=== PATIENT | male | born 1950 | race African-American/Black ===

== ENCOUNTER 2024-11-18 13:24 | Outpatient (REF) | payer MEDICARE, SELFPAY ==
--- OUTSIDE RECORDS SUMMARY | 2024-11-18 15:50 | XMS_ITS | Clinical Summary ---
Author Organization [facility] Address [address] [place] [address] Phone Care Team Providers Care Real Estate Portfolio Manager Name Role Phone Adam Lawson MD Primary Care Provider [phone] Allergies No known active allergies Medications fluticasone propionate (FLONASE) 50 mcg/actuation nasal spray 04/13/20 21 Active diclofenac (VOLTAREN) 50 mg EC tablet Take 1 tablet (50 mg total) by mouth 2 (two) times a day. Active lacosamide (VIMPAT) 200 mg tablet tablet Take 2 Tablets by mouth daily. 1 tablet in the morning 1 tablets at night Active lacosamide (VIMPAT) 150 mg tablet tablet Take 200 mg by mouth 2 (two) times a day. Active folic acid/multivit- min/lutein (CENTRUM SILVER ORAL) 10/06/19 21 Active pravastatin (PRAVACHOL) 40 mg tablet Take 1 tablet (40 mg total) by mouth 1 (one) time each day. 90 tablet 1 05/17/20 24 Active metoprolol tartrate (LOPRESSOR) 25 mg tablet Take 1 tablet (25 mg total) by mouth 1 (one) time each day. 90 tablet 1 05/17/20 24 Active chlorthalidone (HYGROTON) 25 mg tablet Take 1 tablet (25 mg total) by mouth 1 (one) time each day. 90 tablet 1 05/17/20 24 Active pantoprazole (PROTONIX) 40 mg EC tablet Take 1 tablet by mouth once daily 90 tablet 11/11/19 25 Active folic acid (FOLVITE) 1 mg tablet Take 1 tablet by mouth once daily 90 tablet 11/16/19 25 Active albuterol HFA (PROAIR HFA ; PROVENTIL HFA ; VENTOLIN HFA) 90 mcg/actuation inhaler Inhale 1 Puff into the lungs every 6 hours as needed for Cough or Wheezing. 6.7 g 1 11/17/19 25 Active albuterol HFA (PROAIR HFA ; PROVENTIL HFA ; VENTOLIN HFA) 90 mcg/actuation inhaler Inhale 1 Puff into the lungs every 6 hours as needed for Cough or Wheezing. 10/24/19 24 025 Discontinued(Re order) pantoprazole (PROTONIX) 40 mg EC tablet Take 1 tablet (40 mg total) by mouth 1 (one) time each day. 90 tablet 1 05/17/20 24 025 Discontinued folic acid (FOLVITE) 1 mg tablet Take 1 tablet by mouth once daily 90 tablet 08/22/19 25 025 Discontinued Active Problems Problem Noted Date Diagnosed Date Seasonal allergies 02/13/2022 Adenoma of left adrenal gland 01/02/2022 Seizure (CMS/[facility] V24, CMS/HCC V28) 01/02/2022 Gross hematuria 02/10/2020 Asthma 03/19/2018 Hypertension 03/19/2018 Erosive esophagitis 03/06/2018 Hyperlipidemia 01/07/2018 Mitral regurgitation 12/01/2017 ED (erectile dysfunction) 12/12/2016 Internal hemorrhoids 12/12/2016 Proteinuria 12/12/2016 Encounters Date Type Department Care Team Description 10/18/2024 Telephone [facility] [address] [place] [phone] Wesley Capellan PA referral 10/13/2024 1:00 PM EDT Office [address] [facility] [address] [place] [phone] Wesley Capellan PA Hearing loss of left ear, unspecified hearing loss type (Primary Dx) 10/12/2024 [address]phone Internal Medicine [address] [place] [phone] Adam Lawson MD Earache from Last 3 Months Immunizations Name Administration Dates Next Due COVID-19 (Moderna/Spikevax) 12yo and older 04/03 Influenza trivalent, 0.5mL ( Fluzone High-dose) 65yo and older 04/03/2021 Pfizer SARS-CoV-2 COVID-19, mRNA, LNP-S, preservative free 06/16/2024 Td Tetanus diptheria (Tdvax) 7yo and older 02/19 Surgical History Surgery Date Site/Laterality Comments BACK SURGERY PROCEDURE:BACK SURGERY LUNG SURGERY PROCEDURE:LUNG SURGERY AMPUTATION PROCEDURE:AMPUTATION;COMMENT:2 FINGERS Medical History Medical History Date Comments Hypertension DX:Hypertension HLD (hyperlipidemia) DX:HLD (hyp erlipidemia) Seizures (CMS/HCC V24, CMS/HCC V28) DX:Seizures (HCC) Lung cancer (CMS/HCC V24, CMS/HCC V28) DX:Lung cancer (HCC) History of hepatitis C virus infection DX:History of hepatitis C virus infection Family History Medical History Relation Name Comments Cancer Brother PROSTATE Cancer Father BONE Cancer Mother BONE Cancer Sister BONE Relation Name Status Comments Brother Father Mother Sister Social History Tobacco Use Types Packs/Day Years Used Date Smoking Tobacco: Former Smokeless Tobacco: Never Tobacco Cessation:Counseling Given: Not Answered Alcohol Use Standard Drinks/Week Comments Not Currently 0 (1 standard drink = 0.6 oz pur e alcohol) Sex and Gender Information Value Date Recorded Sex Assigned at Not on file Legal Sex Male 12:13 AM EST Gender Identity Not on file Sexual Orientation Not on file Obstetrics History Last Filed Vital Signs Vital Sign Reading Time Taken Comments Blood Pressure 118/75 10/13/2024 1:04 PM EDT Pulse 62 10/13/2024 1:04 PM EDT Temperature 36.6 ??C (97.8 ??F) 10/13/2024 1:04 PM ED T Respiratory Rate - - Oxygen Saturation 98% 10/13/2024 1:04 PM EDT Inhaled Oxygen Concentration - - Weight 73 kg (161 lb) 05/27/2024 10:15 AM EST Height 172.7 cm (5' 8 ) 05/17/2024 8:54 AM EST Body Mass Index 24.48 05/17/2024 8:54 AM EST Plan of Treatment Health Maintenance Due Date Last Done Comments RSV Immunization Adult Patients (1 - Risk 60-74 years 1-dose series) 2011 Abdominal Aortic Aneurysm (AAA) Screen 05/25/2022 Social Influencers of Health Screening 05/25/2022 COVID-19 Vaccine ( season) 2024 06/16/2024, 04/03/2023, 04/12/2022, Additional history exists Depression Screening 11/13/2024 11/14/2023 Falls Risk Assessment 11/13/2024 11/14/2023 Medicare Annual Wellness Visit 11/13/2024 11/14/2023 Hypertension/CHF/CAD Annual BMP Blood Test 05/17/2025 05/17/2024, 10/27/2023, 10/27/2023 Colorectal Cancer Screening: Colonoscopy 08/12/2028 08/12/2023 Cholesterol Screening (Lipid Panel) 05/17/2029 05/17/2024, 10/27/2023, 10/27/2023 DTaP,Tdap,and Td Vaccines (2 - Td or Tdap) 02/19/2033 02/19/2023 Pneumococcal Vaccine: 50+ Years Completed 01/12/2023 Zoster Vaccines Completed 03/30/2023, 01/12/2023 Hepatitis C Screening Completed 10/24/2023 Influenza Vaccine Completed 04/02/2024, , 04/12/2022, Additional history exists HIB Vaccines Aged Out No longer eligi ble based on patient's age to complete this topic HPV Vaccines Aged Out No longer eligi ble based on patient's age to complete this topic Hepatitis A Vaccines Aged Out No long er eligible based on patient's age to complete this topic Hepatitis B Vaccines Aged Out No long er eligible based on patient's age to complete this topic IPV Vaccines Aged Out No longer eligi ble based on patient's age to complete this topic MMR Vaccines Aged Out No longer eligi ble based on patient's age to complete this topic Meningococcal ACWY Vaccine Aged Out N o longer eligible based on patient's age to complete this topic Meningococcal B Vaccine Aged Out No l onger eligible based on patient's age to complete this topic RSV Immunization Patients Under 20 months Aged Out No longer eligible based on patient's age to complete this topic Varicella Vaccines Aged Out No longer eligible based on patient's age to complete this topic Procedures Procedure Name Priority Date/Time Associated Diagnosis Comments BASIC METABOLIC PANEL Routine 05/17/2024 10:40 AM EST Primary hypertension LIPID PANEL WITH REFLEX TO DIRECT LDL Routine 05/17/2024 10:40 AM EST Primary hypertension DEPRESSION SCREENING Routine 11/14/2023 FALLS RISK ASSESSMENT Routine 11/14/2023 HEPATITIS C SCREENING Routine 10/24/2023 COLONOSCOPY Routine 08/12/2023 from Last 3 Months or Most Recently Relevant to Health Maintenance Results * Lipid panel with reflex to direct LDL (05/17/2024 10:40 AM EST) Cholesterol 197 0 - 200 mg/dL LAB CHEMISTRY METHOD 05/17/2024 3:24 PM [facility] Triglycerides 119 0 - 150 mg/dL LAB CHEMISTRY METHOD 05/17/2024 3:24 PM [facility] HDL 95 >=40 mg/dL LAB CHEMISTRY METHOD 05/17/2024 3:24 PM [facility] LDL Calculated 78 0 - 100 mg/dL LAB CHEMISTRY METHOD 05/17/2024 3:24 PM [facility] VLDL Cholesterol Gurjit 23.8 mg/dL LAB CHEMISTRY METHOD 05/17/2024 3:24 PM [facility] Non HDL Chol. (LDL+VLDL) 102 <145 mg/dL LAB CHEMISTRY METHOD 05/17/2024 3:24 PM [facility] Chol/HDL Ratio 2.1 0.0 - 4.4 LAB CHEMISTRY METHOD 05/17/2024 3:24 PM [facility] Blood Venous blood specimen / Unknown Venipuncture / Unknown 05/17/2024 10:40 AM EST 05/17/2024 10:40 AM EST us Adam Lawson MD LAB BLOOD ORDERABLES Final Res ult [facility] [address] [place] [address], [place] [phone] * (ABNORMAL) Basic metabolic panel (05/17/2024 10:40 AM EST) Sodium 141 133 - 145 mmol/L LAB CHEMISTRY METHOD 05/17/2024 3:15 PM [facility] Potassium 4.2 3.5 - 5.5 mmol/L LAB CHEMISTRY METHOD 05/17/2024 3:15 PM [facility] Chloride 106 96 - 110 mmol/L LAB CHEMISTRY METHOD 05/17/2024 3:15 PM [facility] CO2 29 21 - 32 mmol/L LAB CHEMISTRY METHOD 05/17/2024 3:15 PM [facility] Anion Gap 6 3 - 11 LAB CHEMISTRY METHOD 05/17/2024 3:15 PM [facility] Glucose 117(H) 70 - 100 mg/dL LAB CHEMISTRY METHOD 05/17/2024 3:15 PM [facility] BUN 14 5 - 25 mg/dL LAB CHEMISTRY METHOD 05/17/2024 3:15 PM [facility] Creatinine 0.97 0.70 - 1.30 mg/dL LAB CHEMISTRY METHOD 05/17/2024 3:15 PM [facility] eGFR 83 >=60 mL/min/1. 73m2 LAB CHEMISTRY METHOD 05/17/2024 3:15 PM [facility] Comment:Calculation based on the??Chronic Kidney Disease Epidemiology Collaboration (CKD-EPI) equation refit??without adjustment for race. BUN/Creatinine Ratio 14.4 LAB CHEMISTRY METHOD 05/17/2024 3:15 PM [facility] Calcium 10.4 8.5 - 10.5 mg/dL LAB CHEMISTRY METHOD 05/17/2024 3:15 PM EST [facility] Blood Venous blood specimen / Unknown Venipuncture / Unknown 05/17/2024 10:40 AM EST 05/17/2024 10:40 AM EST Adam Lawson MD LAB BLOOD ORDERABLES Final Res ult [facility] [address] [place] [address], * Falls Risk Assessment (11/14/2023) [facility] Falls Risk Assessment abstracted [facility] Provider HEALTH MAINTENANCE Final Result * Depression Screening (11/14/2023) Pathologist [facility] Depression Screening abstracted [facility] Provider HEALTH MAINTENANCE Final Result * Hepatitis C Screening (10/24/2023) Pathologist [facility] Hepatitis C Screening abstracted [facility] Provider HEALTH MAINTENANCE Final Result * Colonoscopy (08/12/2023) Pathologist [facility] Colonoscopy no interpretation , abstracted Anatomical Region Laterality Modality Other Historical Provider HEALTH MAINTENANCE Final Result from Last 3 Months or Most Recently Relevant to Health Maintenance Insurance [employer] MED[employer]ARE [employer]AGE Care Teams Real Estate Portfolio Manager Relationship Specialty Start Date End Date Adam Lawson MD [address] [place] [phone] PCP - General Internal Medicine 07/15/19
== END 2024-11-18 13:25 | disposition home or self-care (01) ==
LOC: HO.SH 13:24
PROVIDERS: Visit Provider Nurse Practitioner Family
DX: Z01.118 Encounter for examination of ears and hearing with other abnormal findings (principal); H90.3 Sensorineural hearing loss, bilateral
CPT/HCPCS: 92557; 92567